=== PATIENT | male | born 1960 | race Caucasian/White ===

== ENCOUNTER → 2020-10-02 | Outpatient (CLI) | payer BC ==
[~2020-10-02] MED LIST: LVT.088T PO
--- NOTE | 2020-10-02 16:57 | Diagnostic Imaging Report ---
Indication: Back injury. Numbness and tingling in all 4 extremities 3 views of the thoracic spine shows normal height and alignment of the vertebral bodies. Disc spaces are well-maintained. There is mild spondylosis. No spinal canal encroachment is seen. There is no fracture. There is no bony lesion. IMPRESSION: There are mild degenerative changes present with no acute abnormality seen. Dictated by: Dictated on workstation # [id number]
== END ==
LOC: RAD 16:24
PROVIDERS: ATTEND Physician Assistant
DX: M47.24 Other spondylosis with radiculopathy, thoracic region (principal)
CPT/HCPCS: 72072

== ENCOUNTER → 2020-11-01 | Outpatient (CLI) | payer BC | LOC: LABNPT 06:23 | PROVIDERS: ATTEND Internal Medicine | DX: R53.83 Other fatigue (principal); R20.2 Paresthesia of skin; Z20.822 Contact with and (suspected) exposure to COVID-19 | CPT/HCPCS: 87635 ==